=== PATIENT | female | born 1985 | race Caucasian/White ===

== ENCOUNTER 2017-04-22 08:35 | Day surgery (SDC) | payer OTHER ==
[2017-04-22] VITALS (7 sets, daily range): BP systolic 123–130; BP diastolic 79–88
[~2017-04-22] VITALS: Ht 172.7 cm; Wt 114.8 kg
--- NOTE | 2017-04-22 07:12 | Anethesia Preoperative Eval ---
Anesthesia Pre-op PMH/ROS General Date of Evaluation: Apr 22, 2017 Time of Evaluation: 10:17 Anesthesiologist: isabelle ASA Score: ASA 3 Mallampati Score Class I : Soft palate, uvula, fauces, pillars visible Class II: Soft palate, uvula, fauces visible Class III: Soft palate, base of uvula visible Class IV: Only hard plate visible Mallampati Classification: Class II Surgeon: remedios Diagnosis: dysphagia Surgical Procedure: egd Anesthesia History: none Family History: no anesthesia problems Allergies: Coded Allergies: No Known Allergies (Unverified , 04/22/17) Medications: see eMAR Past Medical History Cardiovascular: Reports: HTN Gastrointestinal/Genitourinary: Reports: GERD Hematology/Immune: Reports: anemia Other: obesity Anesthesia Pre-op Phys. Exam Physician Exam Last Vital Signs Date Time Temp Pulse Resp B/P (MAP) Pulse Ox O2 Delivery O2 Flow Rate FiO2 04/22/17 09:28 97.4 111 18 130/79 98 Room Air Constitutional: NAD Neurologic: CN 2-12 intact Cardiovascular: RRR Respiratory: CTA Gastrointestinal: S/NT/ND Airway Exam Mallampati Score: Class II MO: full Neck: supple TMD: 2fb ROM: full Teeth: intact Anesthesia Pre-op A/P Labs Urine Test hcg- Risk Assessment & Plan Assessment: asa3 Plan: mac Status Change Before Surgery: No Pre-Antibiotics Drug: KIRSTEN Potts Apr 22, 2017 07:12
[2017-04-22] MEDS ORDERED: PANTOPRAZOLE SO40 MG ORAL (09:38)
[2017-04-22] MEDS ORDERED: WELLBUTRIN XL150 MG ORAL (09:38)
[2017-04-22] MEDS ORDERED: [UNRECOGNIZED DRUG - OTHER] (09:38)
[2017-04-22] MEDS ORDERED: OCELLA 3 MG-0.1 EACH PO (09:39)
[2017-04-22] MEDS ORDERED: LR 1000ml ONE (10:00)
[2017-04-22] MEDS ORDERED: Propofol 200mg/20ml IV ONE (10:00)
[2017-04-22] MEDS ORDERED: Lidocaine 1% MPF 10mg/ml 5ml ONE (10:00)
--- NOTE | 2017-04-22 10:20 | Pre-Procedure Note/Attestation ---
Pre-Procedure Note/Attestation Complete Prior to Procedure Planned Procedure: not applicable Procedure Narrative: egd Indications for Procedure Pre-Operative Diagnosis: gerd Attestation I attest that I discussed the nature of the procedure; its benefits; risks and complications; and alternatives (and the risks and benefits of such alternatives ), prior to the procedure, with the patient (or the patient's legal treasury representative). I attest that, if there was a reasonable possibility of needing a blood transfusion, the patient (or the patient's legal treasury representative) was given the [facility] standardized written summary, pursuant to the [place] Blood Safety Act ([place] Health and Safety Code # 1645, as amended). I attest that I re-evaluated the patient just prior to the surgery and that there has been no change in the patient's H&P, except as documented below: DAISY HERRMANN Apr 22, 2017 10:20
[2017-04-22] MEDS ORDERED: LR 1000ml 1,000 ML IVLG SCH (10:49)
[2017-04-22] MEDS ORDERED: DiphenhydrAMINE 50mg/ml Inj IVP PRN (11:00)
[2017-04-22] MEDS ORDERED: fentaNYL 100 mcg/2 mL IV PRN (11:00)
[2017-04-22] MEDS ORDERED: Midazolam 2mg/2ml Inj IVP PRN (11:00)
[2017-04-22] MEDS ORDERED: Atropine Inj 1mg/10ml Syr IV PRN (11:00)
--- NOTE | 2017-04-22 11:51 | Immediate Post-Op Evaluation ---
Immediate Post-Op Evalulation Immediate Post-Op Evalulation Procedure: egd Date of Evaluation: Apr 22, 2017 Time of Evaluation: 10:54 IV Fluids: 450ml lr Blood Products: none Estimated Blood Loss: negligible Blood Pressure Systolic: 127 Blood Pressure Diastolic: 80 Pulse Rate: 92 Respiratory Rate: 18 O2 Sat by Pulse Oximetry: 100 Temperature (Fahrenheit): 97.8 Pain Score (1-10): 0 Nausea: No Vomiting: No Complications none Patient Status: awake, reacts, patent Hydration Status: adequate Drug: KIRSTEN Potts Apr 22, 2017 11:51
--- NOTE | 2017-04-22 11:52 | 48 Hour Post Anesthesia Eval ---
Post Anesthesia Evaluation Procedure: egd Date of Evaluation: Apr 22, 2017 Time of Evaluation: 10:56 Blood Pressure Systolic: 123 0: 88 Pulse Rate: 89 Respiratory Rate: 18 Temperature (Fahrenheit): 97.8 O2 Sat by Pulse Oximetry: 100 Airway: patent Nausea: No Vomiting: No Pain Intensity: 0 Hydration Status: adequate Cardiopulmonary Status: stable Mental Status/LOC: patient returned to baseline Post-Anesthesia Complications: none Follow-up care needed: N/A KIRSTEN VASQUEZ Apr 22, 2017 11:52
--- NOTE | 2017-04-22 20:01 | Procedure Note ---
DATE OF PROCEDURE: 04/22/2017 GASTROENTEROLOGY PROCEDURE REPORT PROCEDURE: Upper gastrointestinal endoscopy with biopsy. SURGEON: Gabe Saini M.D. ANESTHESIA: Please see the separate anesthesiologist notes for details. PRE-ENDOSCOPIC DIAGNOSES: 1. Symptoms of chest pain. 2. Dysphagia. 3. Gastroesophageal reflux. POST-ENDOSCOPIC DIAGNOSES: 1. A 5-cm hiatal hernia. 2. No evidence of ulcerations. 3. Status post random biopsy of the duodenum, antrum, lower esophagus, and mid esophagus. DESCRIPTION OF PROCEDURE: The procedure, its risks, indications, alternatives, and possible complications were explained to the patient and an informed consent was obtained. The patient was then sedated in the left lateral decubitus position. A diagnostic upper endoscope was introduced through the oropharynx and advanced to the duodenum. Evaluation of the upper gastrointestinal mucosa revealed a 5-cm hiatal hernia. There were no ulcers identified. Biopsies of the duodenum, antrum, lower esophagus, and mid esophagus were sent to pathology for review. The endoscope was removed and the patient was sent to recovery in good condition. COMPLICATIONS: None. RECOMMENDATIONS: 1. Follow up biopsy results. 2. Reflux precautions. 3. Long-term proton pump inhibitor. 4. Outpatient followup. Thank you for asking me to participate in the care of this patient. Gabe Saini M.D. DR: JHON JOB#: [id number] CC: Jyoti Pal M.D. ; FAX#: [phone]
--- NOTE | 2017-04-26 10:45 | Endoscopy Procedure Note ---
Endoscopy Procedure Note Indication for Procedure: gerd Operative Findings/Diagnosis: see dictation Specimen: yes Pt Tolerated Procedure Well: Yes Estimated Blood Loss: none Anesthesiologist: see report Anesthesia: MAC, moderate sedation Medication Given: see anesthesia record Implant(s) used?: No 50 yrs or older w/o bx or poly: Not Applicable 10yrs. F/U not recommended: Not Applicable If not recommended, why?: DAISY HERRMANN Apr 26, 2017 10:45
--- NOTE | 2017-04-26 10:46 | Brief Operative Note ---
Immediate Post Operative Note Operative Note Chief Complaint: GERD Pre-op Diagnosis: gerd Procedure: EGD Post-op Diagnosis: 1. A 5-cm hiatal hernia. 2. No evidence of ulcerations. 3. Status post random biopsy of the duodenum, antrum, lower esophagus, and mid esophagus. Post-op Diagnosis: same as pre-op Surgeon: remedios Anesthesiologist: see report Anesthesia: MAC Specimen: yes Complications: none Condition: stable Fluids: see report Estimated Blood Loss: none Drains: none Implant(s) used?: No DAISY HERRMANN Apr 26, 2017 10:46
== END 2017-04-22 11:45 | disposition home or self-care (01) ==
LOC: GAS 08:35
DX: K44.9 Diaphragmatic hernia without obstruction or gangrene (principal); R13.10 Dysphagia, unspecified; K21.9 Gastro-esophageal reflux disease without esophagitis; E66.9 Obesity, unspecified; Z68.38 Body mass index [BMI] 38.0-38.9, adult; E78.00 Pure hypercholesterolemia, unspecified; G47.00 Insomnia, unspecified; I10 Essential (primary) hypertension
CPT/HCPCS: 43239; 81025; J2704; J7120; 94003; 94150